=== PATIENT | male | born 1985 | race African-American/Black ===

== ENCOUNTER 2025-07-15 15:15 | Outpatient (AMB) | payer OTHER, SELFPAY ==
--- OUTSIDE RECORDS SUMMARY | 2024-03-28 06:45 | XMS_ITS ---
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 Name Role Phone BROOKE ESTEVEZ Unavailable [phone] DIAZ CONN Unavailable [phone] Encounters Encounter Location Date Provider Diagnosis [facility] [address] [place] [address] 03/28/2024 DIAZ CONN Plan Of Treatment Next Appt Details Provider Name:DIAZ CONN, 08/20/2025 01:00:00 PM, [address], [place], [address], Progress Notes * YOUSUF SIMPSONOB:[birth year] (40 yo M)Acc No.[id number]:03/28/2024 CPE Patient: STANLEY CARTER Provider: Nereida NUNN PA-C :1985 A ge:39 Y S ex:Male Date:03/28/2024 Address:[address] [place], [place] [id number] Subjective: * Chief Complaints: * * Medical History: Objective: * Vitals: Assessment: Plan: * Treatment: * Images: Billing Information: * Visit Code: * Procedure Codes: Care Plan Details* * Electronic signature of DANIEL CONN PA-C on 07/15/2025 at 06:44 PM EDT Sign off status: Pending * Provider: Nereida NUNN PA-C Date: 0 03/28/2024 Generated for Han stern/Jose/eTransmitting on: 0 07/15/2025 06:44 PM EDT
--- OUTSIDE RECORDS SUMMARY | 2024-05-29 06:30 | XMS_ITS ---
Author Organization [facility] [address] Address [address] [place] [address] Care Team Providers Care Highway Design Engineer Name Role Phone BROOKE ESTEVEZ Unavailable [phone] DIAZ CONN Unavailable [phone] Encounters Encounter Location Date Provider Diagnosis [facility] [place] [address] 05/29/2024 DIAZ CONN Plan Of Treatment Next Appt Details Provider Name:DIAZ CONN, 08/20/2025 01:00:00 PM, [address], [place], [address], Progress Notes * YOUSUF SIMPSONOB:[birth year] (40 yo M)Acc No.[id number]:05/29/2024 CPE Patient: STANLEY CARTER Provider: Nereida NUNN PA-C :1985 A ge:39 Y S ex:Male Date:05/29/2024 Address:[address] [place], [place] [phone] Subjective: * Chief Complaints: * * Medical History: Objective: * Vitals: Assessment: Plan: * Treatment: * Images: Billing Information: * Visit Code: * Procedure Codes: Care Plan Details* * Electronic signature of DANIEL CONN PA-C on 07/15/2025 at 06:44 PM EDT Sign off status: Pending * Provider: Nereida NUNN PA-C Date: 0 05/29/2024 Generated for Han stern/Jose/eTransmitting on: 0 07/15/2025 06:44 PM EDT
[2025-07-15 15:25] VITALS: BP 144/102; PULSE 71; O2SAT 98; BMI 33.5
--- NOTE | 2025-07-15 15:25 | A.OFFVIS_ITS ---
Vital Signs 07/15/25 15:25 Height 5 ft 9 in Weight 227 lb 2 oz BMI 33.5 BP 144/102 H Blood Pressure Location Rt brachial Position Sitting Pulse 71 Pulse Source Pulse Oximeter Pulse Oximetry (%) 98 Oxygen Delivery Method Room Air Intake Visit Reasons: Snoring Allergies No Known Allergies Allergy (Verified 07/15/25 15:29) HPI HPI Snoring: Details: Erick is a pleasant 40-year-old male, former minimal smoker, with underlying asthma. He was referred by PCP for suspected obstructive sleep apnea. He reports loud snoring, which has been a longstanding issue, and has been told by others that he stops breathing during sleep. He experiences poor sleep quality, often waking up and feeling unrested, and suffers from frequent morning headaches. The patient has a history of asthma, which was severe during childhood, requiring hospitalization and impacting his ability to play sports. He reports a resurgence of symptoms in recent years, including shortness of breath and a dry cough, but has not used an albuterol inhaler recently. The patient reports symptoms of allergic rhinitis, including nasal congestion, and has been using Claritin with limited relief. He has been advised to try a nasal spray such as Flonase for better symptom control. He denies any pertinent family history. 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 The patient has been noted to have elevated blood pressure readings, though he is not currently on any antihypertensive medications. He has a family history of kidney disease and has been advised to monitor his blood pressure at home, given his elevated BP today. [facility] Social History (Updated 07/15/25 @ 15:29 by Naheed Enriquez [facility]) Patient Tobacco Use Status: Former Tobacco user Tobacco use type: Cigar Substance Use Type: Marijuana Review of Systems Const Denies chills, Denies excessive sweating, Denies fever(s), Denies headache(s) and Denies night sweats Eyes Denies dry eyes, Denies irritation and Denies itchy eyes ENT Reports Normal hearing present, Denies headache(s), Denies nasal congestion, Denies nasal discharge, Denies post nasal drip and Denies sore throat Card Denies chest pain, Denies chest pain at rest, Denies chest pain with activity, Denies claudication, Denies leg edema, Denies orthopnea and Denies paroxysmal nocturnal dyspnea Resp Denies chest congestion, Denies excessive phlegm production, Denies pain on inspiration, Denies pain with cough, Denies stridor and Denies wheezing Musc Denies myalgias Neuro Reports Normal hearing present and Denies headache(s) Endo Denies excessive sweating Mitesh/Lymph Denies lymphadenopathy Aller/Immun Denies itchy eyes, Denies seasonal rhinorrhea and Denies wheezing Physical Exam Vital Signs: Last Vital Signs Pulse 71 07/15/25 15:25 BP 144/102 H 07/15/25 15:25 Pulse Ox 98 07/15/25 15:25 Oxygen Delivery Method Room Air 07/15/25 15:25 BMI result Body Mass Index 33.5 Const General: cooperative, healthy appearing, comfortable, no acute distress, well developed and alert Nutritional Appearance: obese Orientation/consciousness: patient oriented x3 Limitations: no limitations HEENT Head: Yes normal to inspection, Yes normocephalic and Yes atraumatic Ears: hearing grossly normal bilaterally and external ears normal Eyes General: appearance normal, both eyes and all related structures Eyelids: Yes eyelids normal Sclerae: sclerae normal EOM: EOMs intact bilaterally Neck Neck: Yes normal visual inspection and Yes no lymphadenopathy Lymphatic: no lymphadenopathy noted Chest Chest palpation & inspection: normal inspection of the chest Resp Effort & Inspection: normal respiratory effort, able to speak in complete sentences, no audible wheezes, no cough, no stridor, not tachypneic, no tripod positioning and no use of accessory muscles Auscultation: clear to auscultation bilaterally Cardio Jugular venous distension: no JVD Rate: regular rate Rhythm: regular rhythm Skin Other: warm, dry General skin exam: no rashes or lesions noted Neuro General: patient oriented x3 Cranial nerves: Yes Normal hearing present Cognition (Neuro): normal cognition Gait exam (Neuro): Normal gait present Extrem General: Yes normal to inspection, Yes capillary refill normal, Yes no clubbing, cyanosis or edema and Yes no pedal edema Psych Appearance: grossly normal and well kempt Speech and movement: Normal speech and movement present and Clear speech present Affect: normal affect Attitude: cooperative Thought process: Normal thought process present Thought content: Normal thought content present Insight: Good insight present (Psych) Judgement: Good judgement present (Psych) Assessment & Plan Assessment & Plan (1) Loud snoring: Code(s): R06.83 - Snoring Category: Medical (2) Witnessed episode of apnea: Code(s): R06.81 - Apnea, not elsewhere classified Category: Medical (3) Asthma: Code(s): J45.909 - Unspecified asthma, uncomplicated Category: Medical Plan Discussed the possibility of obstructive sleep apnea as patient quite symptomatic, will send for a home sleep study, followed by an in-lab study if necessary. We reviewed the management of asthma, including the use of albuterol and the potential need for a daily inhaler. Will send for PFT. Advised the patient on lifestyle modifications for hypertension, including home monitoring of blood pressure given elevated findings today. Encouraged patient to follow up with PCP to further discuss management. All questions were answered and patient is in agreement of plan. Will follow up to review results or sooner if needed. Orders: Orders PFT pulmonary function test Today J45.909 - Unspecified asthma, uncomplicated RT home sleep study Today R06.81 - Apnea, not elsewhere classified, R06.83 - Snoring Medications: New albuterol sulfate 90 mcg/actuation 2 puffs inhalation Q4-6H PRN 1 ea 3RF shortness of breath or wheezing Coding Level of Care Code New Pt Level 4 (17762) Diagnoses Loud snoring R06.83 Witnessed episode of apnea R06.81 Asthma J45.909
--- OUTSIDE RECORDS SUMMARY | 2025-07-15 18:45 | XMS_ITS | Patient Health Record ---
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 p) [phone] f) [phone], pt can make own appt Referral Priority Routine Reason please evaluate. [facility] office. Diagnosis 1 Snoring (R06.83) Referral Organization [facility] Referring Provider First Name DIAZ Referring Provider Last Name FABIEN Referring Provider Speciality Internal edicine Referred Provider Specialty Pulmonology Clinical Notes Jessica Alvarado 07/30 04:19:43 PM > faxed pt info to dr. aguirre. p) [phone] f) [phone], Logan Emery 04/06/2025 03:27:44 PM > I spoke to someone (I forgot to ask the name), on that phone number, they said they don't do sleep apnea testing.Christiano Danasia 04/07/2025 09:08:08 AM > refaxed pt info to [facility] office for evaluation p) [phone] f) [phone] (*the phone number is for neurology), Logan Emery 04/28/2025 01:07:48 PM > Cleo, they have rejected because order needs to be revised - they don't have a Dr. Hernandez in their office. She sent back fax 3 times., Logan Emery 04/29/2025 09:39:27 AM > Resent referral with no Dr. Hernandez's name., Logan Emery 06/01/2025 03:09:26 PM > [phone] spoke with Eli- Dana called the [facility] and they say that they don't have an office in [place] and that all referrals must go to [facility] in [place]. Their fax is [phone]. refaxed twice, Logan Emery 07/01/2025 03:46:30 PM > spoke with ambrosio Castro booked Jul 15 at 3:30 Referral Priority Routine Medications Medication SIG (Take, Route, Frequency, Duration) Notes Start Date End Date Status Albuterol Sulfate HFA 108 (90 Base) MCG/ACT 1 puff as needed Inhalation every 4 hrs; Duration: 30 days 08/19/2024 Active Social History Tobacco Use: Social History Observation Description Date Details (start date - stop date) Never Smoker NA - NA Tobacco Use/Smoking Question Answer Notes Are you a nonsmoker Alcohol Screen (Audit-C) Question Answer Notes Did you have a drink contain ing alcohol in the past year? Yes How often did you have a dri nk containing alcohol in the past year? 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 See HPI Problems Problem Type SNOMED Code ICD Code Onset Dates Problem Status W/U Status Risk Notes Problem Primary insomnia (9022825) Primary insomnia (F51.01) Active confirmed Problem Acne (91813009) Acne, unspecified (L70.9) Active confirmed Problem Snoring (54818230) Snoring (R06.83) Active confirmed Problem Anxiety (18229214) Anxiety (F41.9) Active confirmed Problem Venereal disease screening (517954266) Screen for STD (sexually transmitted disease) (Z11.3) Active confirmed Problem Seasonal allergy (678856404) Seasonal allergies (J30.2) Active confirmed Problem Sleep apnea (78228688) Sleep apnea in adult (G47.30) Active confirmed Problem Constipation by delayed colonic transit (33618421) Constipation by delayed colonic transit (K59.01) Active confirmed Problem Asthma (721580783) Asthma (J45.909) Active confirmed Problem Elevated fasting lipid profile (916687738633) Elevated lipids (E78.5) Active confirmed Problem Acne scarring (L73.0) Active confirmed Vital Signs Heart Rate 87 /min 08/19/2024 Oximetry 97 % 08/19/2024 Blood pressure diastolic 88 mm Hg 08/19/2024 Height 70 in 08/19/2024 Blood pressure systolic 130 mm Hg 08/19/2024 Weight 223.4 lbs 08/19/2024 BMI 32.05 kg/m2 08/19/2024 Encounters Encounter Location Date Provider Diagnosis [facility] [address] [place] [address] 08/19/2024 DIAZ CONN Wellness examination Z00.00 ; Anxiety F41.9 ; Seasonal allergies J30.2 ; Primary insomnia F51.01 ; Elevated lipids E78.5 and Screen for STD (sexually transmitted disease) Z11.[address] [facility] [address] [place] [address] 08/19/2024 DIAZ CONN [facility] [address] [place] [address] 04/06/2025 DIAZ CONN [facility] [address] [place] [address] 04/28/2025 DIAZ CONN Assessments Encounter Date Diagnosis (ICD Code) Assessment Notes Treatment Notes Treatment Clinical Notes Section Notes 08/19/2024 Anxiety (ICD-10 - F41.9) Patient is a 39-year-old male who presented today for annual physical exam. His medications, medical history, social history, allergies, family history, vaccination history, and screening tests were all reviewed. Patient's safety and wellness were also reviewed. # History of elevated triglycerides, very mild in the 160s, will repeat lipid panel # Family history of chronic kidney disease, monitor CMP # Patient declines all vaccines, up-to-date on tetanus in 2020. PHQ-9 with a total score of 4, no concern regarding mental health at this time. Healthcare proxy was declined today.Up-to-date on routine screenings. #seasonal allergies Stop taking Claritin, but did discuss Flonase/nondrowsy allergy medication. #Insomnia: patient states that he gets around 3 to 4 hours of sleep at night. Educated on cortisol manager inspection, as well as ways to improve circadian rhythm.Patient does snore, sending for pulmonology for sleep study. # Refer to dermatology for routine skin checks/back acne treatment. # Looking for STD testing. Not currently sexually active but was sexually active with multiple female partners about 3 months ago. Declines symptoms. # Asthma: Lungs clear on auscultation today. Will treat with albuterol, and discussed antihistamine/Flonase . If no improvement consider chest x-ray/Singulair. Follow-up in 1 year for complete physical, follow with dermatology and pulmonology in the meantime. Fasting labs prior. Patient seen and examined. Comprehensive discussion was done on the following. 1. Nutrition: It is important to follow a healthy diet based on lots of vegetables and legumes and good fat. Avoid processed food and processed carbohydrates. Prepare your own meals. Read labels and avoid high fructose corn syrup, processed chemicals added to increase shelf life and preprepared meals. Avoid fast foods. Eat slowly and plan meals for a week. Try to count calories and be mindful of daily calorie intake. Get into the habit of keeping an eye on your weight by using an appropriate scale. Learn to log exercise and discussed fitness Apps like OpenDoorpal/Studio Systemsit which can help keep log off calories taken versus calories burned. Local food should be preferred. Discussed Dirty Dozen Versus Clean Fifteen. Discussed healthy supplements like fish oil, Tumeric, Curcumin, Melatonin, Resveratrol, Probiotics, Vitamin-D, Alpha-Lipoic acid, Vitamin-D and coconut oil. 2. It is important to exercise regularly. Is a good habit to walk at least 30 minutes a day. Gentle weightlifting with standard precautions to protect the back. Finding activity like cycling or hiking and get into the habit of engaging in it. Stretching before and after the exercises important. It is also important to contact me if there are any problems like shortness of breath, chest pain, back pain and joint or muscle pain associated with the exercise. 3. Discussed age appropriate screening guidelines. Colonoscopy needs to start at age 50 with stool for occult blood as appropriate. There is a new test that can test for genetic abnormalities in the stool sample, Cologuard. This would not replace a colonoscopy but could be used as a screening tool for patients who do not want a colonoscopy. We discussed the importance of early detection of colon cancer. 4. Discussed current PSA screening. PSA screening can be done in most patients between age 50 and 65. However early detection of prostate cancer needs to carefully be balanced with complications with treatment. These include incontinence, impotence etc. Each patient should decide if they would like to have this test. 5. Discussed safe driving and no use of smart phone while driving 6. Age-appropriate immunizations were discussed. A tetanus booster is needed every 10 years. Flu vaccine is recommended every year just before the start of the flu season. Shingles vaccine is recommended after age 50 but not all insurances cover it. Pneumonia vaccine is given after age 65 unless there are certain comorbidities for which it is started earlier. 7. Diagnostic labs were discussed. These could include/not limited to CBC CMP and lipids with fasting blood glucose and insulin levels. Vitamin D and hemoglobin A1c testing might be appropriate. All quetsions answered to patients satisfaction. Patient verbalized understanding of diagnosis and treatments explained. To call sooner prior to next visit it any questions/concerns arise. Case discussed with collaborating physician Chiquis Michaels who reviewed the assessment and plan. Chart, medications, labs, vital signs reviewed. Dictation was accomplished with the use of [employer] voice recognition software, prone to medical misidentifications and grammatical errors. This is unintentional and the practitioner does try to identify and correct these, but some could still be present. Please do not hesitate to contact practitioner for clarification. 08/19/2024 Wellness examination (ICD-10 - Z00.00) Patient is a 39-year-old male who presented today for annual physical exam. His medications, medical history, social history, allergies, family history, vaccination history, and screening tests were all reviewed. Patient's safety and wellness were also reviewed. # History of elevated triglycerides, very mild in the 160s, will repeat lipid panel # Family history of chronic kidney disease, monitor CMP # Patient declines all vaccines, up-to-date on tetanus in 2020. PHQ-9 with a total score of 4, no concern regarding mental health at this time. Healthcare proxy was declined today.Up-to-date on routine screenings. #seasonal allergies Stop taking Claritin, but did discuss Flonase/nondrowsy allergy medication. #Insomnia: patient states that he gets around 3 to 4 hours of sleep at night. Educated on cortisol manager inspection, as well as ways to improve circadian rhythm.Patient does snore, sending for pulmonology for sleep study. # Refer to dermatology for routine skin checks/back acne treatment. # Looking for STD testing. Not currently sexually active but was sexually active with multiple female partners about 3 months ago. Declines symptoms. # Asthma: Lungs clear on auscultation today. Will treat with albuterol, and discussed antihistamine/Flonase . If no improvement consider chest x-ray/Singulair. Follow-up in 1 year for complete physical, follow with dermatology and pulmonology in the meantime. Fasting labs prior. Patient seen and examined. Comprehensive discussion was done on the following. 1. Nutrition: It is important to follow a healthy diet based on lots of vegetables and legumes and good fat. Avoid processed food and processed carbohydrates. Prepare your own meals. Read labels and avoid high fructose corn syrup, processed chemicals added to increase shelf life and preprepared meals. Avoid fast foods. Eat slowly and plan meals for a week. Try to count calories and be mindful of daily calorie intake. Get into the habit of keeping an eye on your weight by using an appropriate scale. Learn to log exercise and discussed fitness Apps like OpenDoorpal/[employer] which can help keep log off calories taken versus calories burned. Local food should be preferred. Discussed Dirty Dozen Versus Clean Fifteen. Discussed healthy supplements like fish oil, Tumeric, Curcumin, Melatonin, Resveratrol, Probiotics, Vitamin-D, Alpha-Lipoic acid, Vitamin-D and coconut oil. 2. It is important to exercise regularly. Is a good habit to walk at least 30 minutes a day. Gentle weightlifting with standard precautions to protect the back. Finding activity like cycling or hiking and get into the habit of engaging in it. Stretching before and after the exercises important. It is also important to contact me if there are any problems like shortness of breath, chest pain, back pain and joint or muscle pain associated with the exercise. 3. Discussed age appropriate screening guidelines. Colonoscopy needs to start at age 50 with stool for occult blood as appropriate. There is a new test that can test for genetic abnormalities in the stool sample, Cologuard. This would not replace a colonoscopy but could be used as a screening tool for patients who do not want a colonoscopy. We discussed the importance of early detection of colon cancer. 4. Discussed current PSA screening. PSA screening can be done in most patients between age 50 and 65. However early detection of prostate cancer needs to carefully be balanced with complications with treatment. These include incontinence, impotence etc. Each patient should decide if they would like to have this test. 5. Discussed safe driving and no use of smart phone while driving 6. Age-appropriate immunizations were discussed. A tetanus booster is needed every 10 years. Flu vaccine is recommended every year just before the start of the flu season. Shingles vaccine is recommended after age 50 but not all insurances cover it. Pneumonia vaccine is given after age 65 unless there are certain comorbidities for which it is started earlier. 7. Diagnostic labs were discussed. These could include/not limited to CBC CMP and lipids with fasting blood glucose and insulin levels. Vitamin D and hemoglobin A1c testing might be appropriate. All quetsions answered to patients satisfaction. Patient verbalized understanding of diagnosis and treatments explained. To call sooner prior to next visit it any questions/concerns arise. Case discussed with collaborating physician Chiquis Michaels who reviewed the assessment and plan. Chart, medications, labs, vital signs reviewed. Dictation was accomplished with the use of [employer] voice recognition software, prone to medical misidentifications and grammatical errors. This is unintentional and the practitioner does try to identify and correct these, but some could still be present. Please do not hesitate to contact practitioner for clarification. 08/19/2024 Seasonal allergies (ICD-10 - J30.2) Patient is a 39-year-old male who presented today for annual physical exam. His medications, medical history, social history, allergies, family history, vaccination history, and screening tests were all reviewed. Patient's safety and wellness were also reviewed. # History of elevated triglycerides, very mild in the 160s, will repeat lipid panel # Family history of chronic kidney disease, monitor CMP # Patient declines all vaccines, up-to-date on tetanus in 2020. PHQ-9 with a total score of 4, no concern regarding mental health at this time. Healthcare proxy was declined today.Up-to-date on routine screenings. #seasonal allergies Stop taking Claritin, but did discuss Flonase/nondrowsy allergy medication. #Insomnia: patient states that he gets around 3 to 4 hours of sleep at night. Educated on cortisol manager inspection, as well as ways to improve circadian rhythm.Patient does snore, sending for pulmonology for sleep study. # Refer to dermatology for routine skin checks/back acne treatment. # Looking for STD testing. Not currently sexually active but was sexually active with multiple female partners about 3 months ago. Declines symptoms. # Asthma: Lungs clear on auscultation today. Will treat with albuterol, and discussed antihistamine/Flonase . If no improvement consider chest x-ray/Singulair. Follow-up in 1 year for complete physical, follow with dermatology and pulmonology in the meantime. Fasting labs prior. Patient seen and examined. Comprehensive discussion was done on the following. 1. Nutrition: It is important to follow a healthy diet based on lots of vegetables and legumes and good fat. Avoid processed food and processed carbohydrates. Prepare your own meals. Read labels and avoid high fructose corn syrup, processed chemicals added to increase shelf life and preprepared meals. Avoid fast foods. Eat slowly and plan meals for a week. Try to count calories and be mindful of daily calorie intake. Get into the habit of keeping an eye on your weight by using an appropriate scale. Learn to log exercise and discussed fitness Apps like Open[employer]oorpal/[employer] which can help keep log off calories taken versus calories burned. Local food should be preferred. Discussed Dirty Dozen Versus Clean Fifteen. Discussed healthy supplements like fish oil, Tumeric, Curcumin, Melatonin, Resveratrol, Probiotics, Vitamin-D, Alpha-Lipoic acid, Vitamin-D and coconut oil. 2. It is important to exercise regularly. Is a good habit to walk at least 30 minutes a day. Gentle weightlifting with standard precautions to protect the back. Finding activity like cycling or hiking and get into the habit of engaging in it. Stretching before and after the exercises important. It is also important to contact me if there are any problems like shortness of breath, chest pain, back pain and joint or muscle pain associated with the exercise. 3. Discussed age appropriate screening guidelines. Colonoscopy needs to start at age 50 with stool for occult blood as appropriate. There is a new test that can test for genetic abnormalities in the stool sample, Cologuard. This would not replace a colonoscopy but could be used as a screening tool for patients who do not want a colonoscopy. We discussed the importance of early detection of colon cancer. 4. Discussed current PSA screening. PSA screening can be done in most patients between age 50 and 65. However early detection of prostate cancer needs to carefully be balanced with complications with treatment. These include incontinence, impotence etc. Each patient should decide if they would like to have this test. 5. Discussed safe driving and no use of smart phone while driving 6. Age-appropriate immunizations were discussed. A tetanus booster is needed every 10 years. Flu vaccine is recommended every year just before the start of the flu season. Shingles vaccine is recommended after age 50 but not all insurances cover it. Pneumonia vaccine is given after age 65 unless there are certain comorbidities for which it is started earlier. 7. Diagnostic labs were discussed. These could include/not limited to CBC CMP and lipids with fasting blood glucose and insulin levels. Vitamin D and hemoglobin A1c testing might be appropriate. All quetsions answered to patients satisfaction. Patient verbalized understanding of diagnosis and treatments explained. To call sooner prior to next visit it any questions/concerns arise. Case discussed with collaborating physician Chiquis Michaels who reviewed the assessment and plan. Chart, medications, labs, vital signs reviewed. Dictation was accomplished with the use of [employer] voice recognition software, prone to medical misidentifications and grammatical errors. This is unintentional and the practitioner does try to identify and correct these, but some could still be present. Please do not hesitate to contact practitioner for clarification. 08/19/2024 Primary insomnia (ICD-10 - F51.01) Patient is a 39-year-old male who presented today for annual physical exam. His medications, medical history, social history, allergies, family history, vaccination history, and screening tests were all reviewed. Patient's safety and wellness were also reviewed. # History of elevated triglycerides, very mild in the 160s, will repeat lipid panel # Family history of chronic kidney disease, monitor CMP # Patient declines all vaccines, up-to-date on tetanus in 2020. PHQ-9 with a total score of 4, no concern regarding mental health at this time. Healthcare proxy was declined today.Up-to-date on routine screenings. #seasonal allergies Stop taking Claritin, but did discuss Flonase/nondrowsy allergy medication. #Insomnia: patient states that he gets around 3 to 4 hours of sleep at night. Educated on cortisol manager inspection, as well as ways to improve circadian rhythm.Patient does snore, sending for pulmonology for sleep study. # Refer to dermatology for routine skin checks/back acne treatment. # Looking for STD testing. Not currently sexually active but was sexually active with multiple female partners about 3 months ago. Declines symptoms. # Asthma: Lungs clear on auscultation today. Will treat with albuterol, and discussed antihistamine/Flonase . If no improvement consider chest x-ray/Singulair. Follow-up in 1 year for complete physical, follow with dermatology and pulmonology in the meantime. Fasting labs prior. Patient seen and examined. Comprehensive discussion was done on the following. 1. Nutrition: It is important to follow a healthy diet based on lots of vegetables and legumes and good fat. Avoid processed food and processed carbohydrates. Prepare your own meals. Read labels and avoid high fructose corn syrup, processed chemicals added to increase shelf life and preprepared meals. Avoid fast foods. Eat slowly and plan meals for a week. Try to count calories and be mindful of daily calorie intake. Get into the habit of keeping an eye on your weight by using an appropriate scale. Learn to log exercise and discussed fitness Apps like OpenDoorpal/Studio Systemsit which can help keep log off calories taken versus calories burned. Local food should be preferred. Discussed Dirty Dozen Versus Clean Fifteen. Discussed healthy supplements like fish oil, Tumeric, Curcumin, Melatonin, Resveratrol, Probiotics, Vitamin-D, Alpha-Lipoic acid, Vitamin-D and coconut oil. 2. It is important to exercise regularly. Is a good habit to walk at least 30 minutes a day. Gentle weightlifting with standard precautions to protect the back. Finding activity like cycling or hiking and get into the habit of engaging in it. Stretching before and after the exercises important. It is also important to contact me if there are any problems like shortness of breath, chest pain, back pain and joint or muscle pain associated with the exercise. 3. Discussed age appropriate screening guidelines. Colonoscopy needs to start at age 50 with stool for occult blood as appropriate. There is a new test that can test for genetic abnormalities in the stool sample, Cologuard. This would not replace a colonoscopy but could be used as a screening tool for patients who do not want a colonoscopy. We discussed the importance of early detection of colon cancer. 4. Discussed current PSA screening. PSA screening can be done in most patients between age 50 and 65. However early detection of prostate cancer needs to carefully be balanced with complications with treatment. These include incontinence, impotence etc. Each patient should decide if they would like to have this test. 5. Discussed safe driving and no use of smart phone while driving 6. Age-appropriate immunizations were discussed. A tetanus booster is needed every 10 years. Flu vaccine is recommended every year just before the start of the flu season. Shingles vaccine is recommended after age 50 but not all insurances cover it. Pneumonia vaccine is given after age 65 unless there are certain comorbidities for which it is started earlier. 7. Diagnostic labs were discussed. These could include/not limited to CBC CMP and lipids with fasting blood glucose and insulin levels. Vitamin D and hemoglobin A1c testing might be appropriate. All quetsions answered to patients satisfaction. Patient verbalized understanding of diagnosis and treatments explained. To call sooner prior to next visit it any questions/concerns arise. Case discussed with collaborating physician Chiquis Michaels who reviewed the assessment and plan. Chart, medications, labs, vital signs reviewed. Dictation was accomplished with the use of [employer] voice recognition software, prone to medical misidentifications and grammatical errors. This is unintentional and the practitioner does try to identify and correct these, but some could still be present. Please do not hesitate to contact practitioner for clarification. 08/19/2024 Elevated lipids (ICD-10 - E78.5) Patient is a 39-year-old male who presented today for annual physical exam. His medications, medical history, social history, allergies, family history, vaccination history, and screening tests were all reviewed. Patient's safety and wellness were also reviewed. # History of elevated triglycerides, very mild in the 160s, will repeat lipid panel # Family history of chronic kidney disease, monitor CMP # Patient declines all vaccines, up-to-date on tetanus in 2020. PHQ-9 with a total score of 4, no concern regarding mental health at this time. Healthcare proxy was declined today.Up-to-date on routine screenings. #seasonal allergies Stop taking Claritin, but did discuss Flonase/nondrowsy allergy medication. #Insomnia: patient states that he gets around 3 to 4 hours of sleep at night. Educated on cortisol manager inspection, as well as ways to improve circadian rhythm.Patient does snore, sending for pulmonology for sleep study. # Refer to dermatology for routine skin checks/back acne treatment. # Looking for STD testing. Not currently sexually active but was sexually active with multiple female partners about 3 months ago. Declines symptoms. # Asthma: Lungs clear on auscultation today. Will treat with albuterol, and discussed antihistamine/Flonase . If no improvement consider chest x-ray/Singulair. Follow-up in 1 year for complete physical, follow with dermatology and pulmonology in the meantime. Fasting labs prior. Patient seen and examined. Comprehensive discussion was done on the following. 1. Nutrition: It is important to follow a healthy diet based on lots of vegetables and legumes and good fat. Avoid processed food and processed carbohydrates. Prepare your own meals. Read labels and avoid high fructose corn syrup, processed chemicals added to increase shelf life and preprepared meals. Avoid fast foods. Eat slowly and plan meals for a week. Try to count calories and be mindful of daily calorie intake. Get into the habit of keeping an eye on your weight by using an appropriate scale. Learn to log exercise and discussed fitness Apps like [employer]ob/[employer] which can help keep log off calories taken versus calories burned. Local food should be preferred. Discussed Dirty Dozen Versus Clean Fifteen. Discussed healthy supplements like fish oil, Tumeric, Curcumin, Melatonin, Resveratrol, Probiotics, Vitamin-D, Alpha-Lipoic acid, Vitamin-D and coconut oil. 2. It is important to exercise regularly. Is a good habit to walk at least 30 minutes a day. Gentle weightlifting with standard precautions to protect the back. Finding activity like cycling or hiking and get into the habit of engaging in it. Stretching before and after the exercises important. It is also important to contact me if there are any problems like shortness of breath, chest pain, back pain and joint or muscle pain associated with the exercise. 3. Discussed age appropriate screening guidelines. Colonoscopy needs to start at age 50 with stool for occult blood as appropriate. There is a new test that can test for genetic abnormalities in the stool sample, Cologuard. This would not replace a colonoscopy but could be used as a screening tool for patients who do not want a colonoscopy. We discussed the importance of early detection of colon cancer. 4. Discussed current PSA screening. PSA screening can be done in most patients between age 50 and 65. However early detection of prostate cancer needs to carefully be balanced with complications with treatment. These include incontinence, impotence etc. Each patient should decide if they would like to have this test. 5. Discussed safe driving and no use of smart phone while driving 6. Age-appropriate immunizations were discussed. A tetanus booster is needed every 10 years. Flu vaccine is recommended every year just before the start of the flu season. Shingles vaccine is recommended after age 50 but not all insurances cover it. Pneumonia vaccine is given after age 65 unless there are certain comorbidities for which it is started earlier. 7. Diagnostic labs were discussed. These could include/not limited to CBC CMP and lipids with fasting blood glucose and insulin levels. Vitamin D and hemoglobin A1c testing might be appropriate. All quetsions answered to patients satisfaction. Patient verbalized understanding of diagnosis and treatments explained. To call sooner prior to next visit it any questions/concerns arise. Case discussed with collaborating physician Chiquis Michaels who reviewed the assessment and plan. Chart, medications, labs, vital signs reviewed. Dictation was accomplished with the use of [employer] voice recognition software, prone to medical misidentifications and grammatical errors. This is unintentional and the practitioner does try to identify and correct these, but some could still be present. Please do not hesitate to contact practitioner for clarification. 08/19/2024 Screen for STD (sexually transmitted disease) (ICD-10 - Z11.3) Patient is a 39-year-old male who presented today for annual physical exam. His medications, medical history, social history, allergies, family history, vaccination history, and screening tests were all reviewed. Patient's safety and wellness were also reviewed. # History of elevated triglycerides, very mild in the 160s, will repeat lipid panel # Family history of chronic kidney disease, monitor CMP # Patient declines all vaccines, up-to-date on tetanus in 2020. PHQ-9 with a total score of 4, no concern regarding mental health at this time. Healthcare proxy was declined today.Up-to-date on routine screenings. #seasonal allergies Stop taking Claritin, but did discuss Flonase/nondrowsy allergy medication. #Insomnia: patient states that he gets around 3 to 4 hours of sleep at night. Educated on cortisol manager inspection, as well as ways to improve circadian rhythm.Patient does snore, sending for pulmonology for sleep study. # Refer to dermatology for routine skin checks/back acne treatment. # Looking for STD testing. Not currently sexually active but was sexually active with multiple female partners about 3 months ago. Declines symptoms. # Asthma: Lungs clear on auscultation today. Will treat with albuterol, and discussed antihistamine/Flonase . If no improvement consider chest x-ray/Singulair. Follow-up in 1 year for complete physical, follow with dermatology and pulmonology in the meantime. Fasting labs prior. Patient seen and examined. Comprehensive discussion was done on the following. 1. Nutrition: It is important to follow a healthy diet based on lots of vegetables and legumes and good fat. Avoid processed food and processed carbohydrates. Prepare your own meals. Read labels and avoid high fructose corn syrup, processed chemicals added to increase shelf life and preprepared meals. Avoid fast foods. Eat slowly and plan meals for a week. Try to count calories and be mindful of daily calorie intake. Get into the habit of keeping an eye on your weight by using an appropriate scale. Learn to log exercise and discussed fitness Apps like [employer]ob/[employer] which can help keep log off calories taken versus calories burned. Local food should be preferred. Discussed Dirty Dozen Versus Clean Fifteen. Discussed healthy supplements like fish oil, Tumeric, Curcumin, Melatonin, Resveratrol, Probiotics, Vitamin-D, Alpha-Lipoic acid, Vitamin-D and coconut oil. 2. It is important to exercise regularly. Is a good habit to walk at least 30 minutes a day. Gentle weightlifting with standard precautions to protect the back. Finding activity like cycling or hiking and get into the habit of engaging in it. Stretching before and after the exercises important. It is also important to contact me if there are any problems like shortness of breath, chest pain, back pain and joint or muscle pain associated with the exercise. 3. Discussed age appropriate screening guidelines. Colonoscopy needs to start at age 50 with stool for occult blood as appropriate. There is a new test that can test for genetic abnormalities in the stool sample, Cologuard. This would not replace a colonoscopy but could be used as a screening tool for patients who do not want a colonoscopy. We discussed the importance of early detection of colon cancer. 4. Discussed current PSA screening. PSA screening can be done in most patients between age 50 and 65. However early detection of prostate cancer needs to carefully be balanced with complications with treatment. These include incontinence, impotence etc. Each patient should decide if they would like to have this test. 5. Discussed safe driving and no use of smart phone while driving 6. Age-appropriate immunizations were discussed. A tetanus booster is needed every 10 years. Flu vaccine is recommended every year just before the start of the flu season. Shingles vaccine is recommended after age 50 but not all insurances cover it. Pneumonia vaccine is given after age 65 unless there are certain comorbidities for which it is started earlier. 7. Diagnostic labs were discussed. These could include/not limited to CBC CMP and lipids with fasting blood glucose and insulin levels. Vitamin D and hemoglobin A1c testing might be appropriate. All quetsions answered to patients satisfaction. Patient verbalized understanding of diagnosis and treatments explained. To call sooner prior to next visit it any questions/concerns arise. Case discussed with collaborating physician Chiquis Michaels who reviewed the assessment and plan. Chart, medications, labs, vital signs reviewed. Dictation was accomplished with the use of [employer] voice recognition software, prone to medical misidentifications and grammatical errors. This is unintentional and the practitioner does try to identify and correct these, but some could still be present. Please do not hesitate to contact practitioner for clarification. Plan Of Treatment Pending Test Test Name Order Date X ray : Spines, lumbosacral 12/12/2021 HIV 01/29/2024 Ultrasound : Kidneys and Bladder 022 CBC (COMPLETE BLOOD COUNT) 03/03/2021 COMPREHENSIVE METABOLIC PANEL 03/03/2021 GC (N. GONORRHOEAE) AMP PROBE, URINE 11/2023 HEMOGLOBIN A1C 03/03/2021 LIPID PANEL 03/03/2021 URINALYSIS, COMPLETE 03/03/2021 Hepatitis C Antibody 01/29/2024 Hepatitis Acute Panel 08/19/2024 HIV 1 HIV 2 Antibody Screen 08/19/2024 CHLAMYDIA DNA URINE 01/29/2024 LIPID PANEL, STANDARD 08/19/2024 HIV 1/2 ANTIGEN/ANTIBODY,FOURTH GENERATI ON W/RFL 02/01/2024 COMPREHENSIVE METABOLIC PANEL 08/19/2024 CBC (INCLUDES DIFF/PLT) 08/19/2024 HSV 1/2 IGG,TYPE SPECIFIC AB 08/19/2024 HSV 1/2 IGG,TYPE SPECIFIC AB 02/01/2024 CHLAMYDIA/N. GONORRHOEAE RNA, TMA, UROGE NITAL 02/01/2024 CHLAMYDIA/N. GONORRHOEAE RNA, TMA, UROGE NITAL 08/19/2024 HERPES 1 AND 2 ANTIBODIES, IGM Next Appt Details Provider Name:DIAZ CONN, 08/20/2025 01:00:00 PM, [address], [place], [address], Insurance Providers Payer Name Payer Address Payer Phone Subscriber Number Group Number Insured Name Patient Relationship to Insured Coverage Start Date Coverage End Date [employer] [address] [id number] [phone] [id number] STANLEY SIMPSON Self - patient is the insured Medical (General) History Medical History History ICD Code Asthma J45.909 Seasonal allergies J30.2 Snoring R06.83 Acne scarring L73.0 Surgical History Surgery Date(Month/Year) Appendectomy (2020) 2020 Right achilles tear 2021
--- OUTSIDE RECORDS SUMMARY | 2025-07-15 18:45 | XMS_ITS ---
Author Name [facility] Organization Unknown Care Team Organization Name Specialty Phone Email Start Date End Da te [employer] 04/02/2024 0 04/03/2024 [facility] 09/05/2022
== END 2025-07-15 15:54 | disposition home or self-care (01) ==
LOC: HO.HPSW 15:15
PROVIDERS: PCP Physician Assistant; Referring Provider Physician Assistant; Visit Provider Nurse Practitioner Family
DX: R06.83 Snoring (principal); R06.81 Apnea, not elsewhere classified; J45.909 Unspecified asthma, uncomplicated
CPT/HCPCS: 99204

== ENCOUNTER 2025-10-06 15:46 | Outpatient (REF) | payer OTHER, SELFPAY ==
--- OUTSIDE RECORDS SUMMARY | 2024-05-29 05:30 | XMS_ITS ---
Author Organization [facility] [address] Address [address] [place] [address] Care Team Providers Care Plant Protection Officer Name Role Phone BROOKE ESTEVEZ Unavailable [phone] DIAZ CONN Unavailable [phone] Encounters Encounter Location Date Provider Diagnosis [facility] [place] [address] 05/29/2024 DIAZ CONN Plan Of Treatment Next Appt Details Provider Name:DIAZ CONN, 11/02/2025 01:00:00 PM, [address], [place], [address], Progress Notes * YOUSUF SIMPSONOB:[birth year] (40 yo M)Acc No.[id number]:05/29/2024 CPE Patient: JARON CARTERCaitlin Provider: Nereida CONN PA-C :1985 A ge:39 Y S ex:Male Date:05/29/2024 Address:[address] [place], [place] [phone] Care Plan Details* * Electronic signature of DANIEL CONN PA-C on 10/06/2025 at 10:27 PM EST Sign off status: Pending * Provider: Nereida CONN PA-C Date: 0 05/29/2024 Generated for Han stern/Faallang/eTransmitting on: 1 12/07/2024 10:27 PM EST
--- OUTSIDE RECORDS SUMMARY | 2025-08-20 08:00 | XMS_ITS ---
Author Organization [facility] [address] Address [address] [place] [address] Care Team Providers Care Rn Hospice Name Role Phone BROOKE ESTEVEZ Unavailable [phone] DIAZ CONN Unavailable [phone] REASON FOR VISIT annual Encounters Encounter Location Date Provider Diagnosis [facility] [address] [place] [address] 08/20/2025 DIAZ CONN Plan Of Treatment Next Appt Details Provider Name:DIAZ CONN, 11/02/2025 01:00:00 PM, [address], [place], [address], Progress Notes * YOUSUF SIMPSONOB:[birth year] (40 yo M)Acc No.[id number]:08/20/2025 CPE Patient: Imani CARROLL STANLEY Provider: Nereida CONN PA-C :1985 A ge:40 Y S ex:Male Date:08/20/2025 Address:[address] [place], [place] [id number] Subjective: * Chief Complaints: * A nnual Care Plan Details* * Electronic signature of DANIEL CONN PA-C on 10/06/2025 at 10:27 PM EST Sign off status: Pending * Provider: Nereida CONN PA-C Date: Generated for Printi ng/Faxing/eTransmitting on: 1 12/07/2024 10:27 PM EST
--- NOTE | 2025-10-06 15:52 | PFT_ITS ---
Spirometry [] Lung Volumes [] Diffusion Capacity [] Methacholine Challenge [] Flow Volume Loops [] MVV [] MIP/MEP(Max inspiratory pressure/Max expiratory pressure) [] 6 Minute Walk Test [] ABG [] Interpretation [] MTDD
[2025-10-06 16:36] VITALS: PULSE 74
--- OUTSIDE RECORDS SUMMARY | 2025-10-06 22:28 | XMS_ITS | Patient Health Record ---
Author Organization [facility] Address [address] [place] [address] Care Team Providers Care Cfd Engineer Name Role Phone BROOKE MICHAELS Unavailable [phone] DANIEL CONNY Unavailable [phone] Allergies No Known Allergies Reason For Referral No Information Medications Medication SIG (Take, Route, Frequency, Duration) Notes Start Date End Date Status amLODIPine Besylate 5 MG Tablet 1 tablet Orally Once a day; Duration: 30 days 07/20/2025 Active Albuterol Sulfate HFA 108 (90 Base) MCG/ACT Aerosol Solution 1 puff as needed Inhalation every 4 hrs; Duration: 30 days 08/19/2024 Active Social History Tobacco Use: Social History Observation Description Date Details (start date - stop date) Never Smoker NA - NA Social History Drugs/Alcohol: Social Info Question Answer Notes Alcohol Screen (Audit-C) Did you have a drink containing alcohol in the past year? Yes How often did you have a drink containing alcohol in the past year? 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 See HPI Problems Problem Type SNOMED Code ICD Code Onset Dates Problem Status W/U Status Risk Notes Problem Primary insomnia (1233592) Primary insomnia (F51.01) Active confirmed Problem Acne (23299017) Acne, unspecified (L70.9) Active confirmed Problem Snoring (88949880) Snoring (R06.83) Active confirmed Problem Abnormal blood pressure (43178759) Encounter for examination of blood pressure with abnormal findings (Z01.31) Active confirmed Problem Essential hypertension (28932646) Essential hypertension (I10) Active confirmed Problem Anxiety (50282107) Anxiety (F41.9) Active confirmed Problem Venereal disease screening (239262896) Screen for STD (sexually transmitted disease) (Z11.3) Active confirmed Problem Seasonal allergy (304820662) Seasonal allergies (J30.2) Active confirmed Problem Sleep apnea (22375880) Sleep apnea in adult (G47.30) Active confirmed Problem Constipation by delayed colonic transit (36913218) Constipation by delayed colonic transit (K59.01) Active confirmed Problem Asthma (159421986) Asthma (J45.909) Active confirmed Problem Elevated fasting lipid profile (928527549827) Elevated lipids (E78.5) Active confirmed Problem Acne scarring (L73.0) Active confirmed Vital Signs Heart Rate 93 /min 07/20/2025 Oximetry 99 % 07/20/2025 Blood pressure diastolic 98 mm Hg 07/20/2025 Height 70 in 07/20/2025 Blood pressure systolic 142 mm Hg 07/20/2025 Weight 227.2 lbs 07/20/2025 BMI 32.6 kg/m2 07/20/2025 Encounters Encounter Location Date Provider Diagnosis [facility] [address] [place], [place] 07/20/2025 DIAZ CONN Anxiety F41.9 ; Essential hypertension I10 ; Seasonal allergies J30.2 ; Primary insomnia F51.01 ; Elevated lipids E78.5 ; Screen for STD (sexually transmitted disease) Z11.3 and Encounter for examination of blood pressure with abnormal findings Z01.[address] [facility] [address] [place], [place] 04/06/[address] CONN [facility] [address] [place], [place] 04/28/2025 DIAZ CONN [facility] [address] [place] [phone] 07/17/[address] [facility] [address] [place] [address] 07/17/2025 DIAZ CONN Assessments Encounter Date Diagnosis (ICD Code) Assessment Notes Treatment Notes Treatment Clinical Notes Section Notes 07/20/2025 Essential hypertension (ICD-10 - I10) Pleasant 40-year-old male who presents the office for a follow-up visit. # Scheduled with pulmonology, noted to have hypertension, scheduled for sleep apnea test in the next 10 weeks, but they are concerned in regards to his blood pressure that is been high at home. # Hypertension: Blood pressure 142/98. Patient is -[place]. Will start amlodipine 5 mg and follow-up in 4 weeks. Obtaining labs. Patient states that he occasionally does get headaches, declines dizziness. If symptoms persist post blood pressure management, could consider further imaging. Discussed EKG in office today July 20, 2025 but patient declines. He states he has no concern while driving # Asthma: Treated with albuterol by pulmonology as needed # BMI 32: Discussed lifestyle # Obtain labs from July 20, 2025, call with result # History of elevated triglycerides, very mild in the 160s, will repeat lipid panel # Family history of chronic kidney disease, monitor CMP #seasonal allergies Stop taking Claritin, but did discuss Flonase/nondrowsy allergy medication. # Refer to dermatology for routine skin checks/back acne treatment. Follow-up for complete physical in 4 weeks, will assess blood pressure at that time All quetsions answered to patients satisfaction. Patient verbalized understanding of diagnosis and treatments explained. To call sooner prior to next visit it any questions/concerns arise. Case discussed with collaborating physician Chiquis Michaels who reviewed the assessment and plan. Chart, medications, labs, vital signs reviewed. Dictation was accomplished with the use of [employer] voice recognition software, prone to medical misidentifications and grammatical errors. This is unintentional and the practitioner does try to identify and correct these, but some could still be present. Please do not hesitate to contact practitioner for clarification. 07/20/2025 Anxiety (ICD-10 - F41.9) Pleasant 40-year-old male who presents the office for a follow-up visit. # Scheduled with pulmonology, noted to have hypertension, scheduled for sleep apnea test in the next 10 weeks, but they are concerned in regards to his blood pressure that is been high at home. # Hypertension: Blood pressure 142/98. Patient is -Maldivian. Will start amlodipine 5 mg and follow-up in 4 weeks. Obtaining labs. Patient states that he occasionally does get headaches, declines dizziness. If symptoms persist post blood pressure management, could consider further imaging. Discussed EKG in office today July 20, 2025 but patient declines. He states he has no concern while driving # Asthma: Treated with albuterol by pulmonology as needed # BMI 32: Discussed lifestyle # Obtain labs from July 20, 2025, call with result # History of elevated triglycerides, very mild in the 160s, will repeat lipid panel # Family history of chronic kidney disease, monitor CMP #seasonal allergies Stop taking Claritin, but did discuss Flonase/nondrowsy allergy medication. # Refer to dermatology for routine skin checks/back acne treatment. Follow-up for complete physical in 4 weeks, will assess blood pressure at that time All quetsions answered to patients satisfaction. Patient verbalized understanding of diagnosis and treatments explained. To call sooner prior to next visit it any questions/concerns arise. Case discussed with collaborating physician Chiquis Michaels who reviewed the assessment and plan. Chart, medications, labs, vital signs reviewed. Dictation was accomplished with the use of [employer] voice recognition software, prone to medical misidentifications and grammatical errors. This is unintentional and the practitioner does try to identify and correct these, but some could still be present. Please do not hesitate to contact practitioner for clarification. 07/20/2025 Seasonal allergies (ICD-10 - J30.2) Pleasant 40-year-old male who presents the office for a follow-up visit. # Scheduled with pulmonology, noted to have hypertension, scheduled for sleep apnea test in the next 10 weeks, but they are concerned in regards to his blood pressure that is been high at home. # Hypertension: Blood pressure 142/98. Patient is -Maldiv[place]. Will start amlodipine 5 mg and follow-up in 4 weeks. Obtaining labs. Patient states that he occasionally does get headaches, declines dizziness. If symptoms persist post blood pressure management, could consider further imaging. Discussed EKG in office today July 20, 2025 but patient declines. He states he has no concern while driving # Asthma: Treated with albuterol by pulmonology as needed # BMI 32: Discussed lifestyle # Obtain labs from July 20, 2025, call with result # History of elevated triglycerides, very mild in the 160s, will repeat lipid panel # Family history of chronic kidney disease, monitor CMP #seasonal allergies Stop taking Claritin, but did discuss Flonase/nondrowsy allergy medication. # Refer to dermatology for routine skin checks/back acne treatment. Follow-up for complete physical in 4 weeks, will assess blood pressure at that time All quetsions answered to patients satisfaction. Patient verbalized understanding of diagnosis and treatments explained. To call sooner prior to next visit it any questions/concerns arise. Case discussed with collaborating physician Chiquis Michaels who reviewed the assessment and plan. Chart, medications, labs, vital signs reviewed. Dictation was accomplished with the use of [employer] voice recognition software, prone to medical misidentifications and grammatical errors. This is unintentional and the practitioner does try to identify and correct these, but some could still be present. Please do not hesitate to contact practitioner for clarification. 07/20/2025 Primary insomnia (ICD-10 - F51.01) Pleasant 40-year-old male who presents the office for a follow-up visit. # Scheduled with pulmonology, noted to have hypertension, scheduled for sleep apnea test in the next 10 weeks, but they are concerned in regards to his blood pressure that is been high at home. # Hypertension: Blood pressure 142/98. Patient is -Maldivian. Will start amlodipine 5 mg and follow-up in 4 weeks. Obtaining labs. Patient states that he occasionally does get headaches, declines dizziness. If symptoms persist post blood pressure management, could consider further imaging. Discussed EKG in office today July 20, 2025 but patient declines. He states he has no concern while driving # Asthma: Treated with albuterol by pulmonology as needed # BMI 32: Discussed lifestyle # Obtain labs from July 20, 2025, call with result # History of elevated triglycerides, very mild in the 160s, will repeat lipid panel # Family history of chronic kidney disease, monitor CMP #seasonal allergies Stop taking Claritin, but did discuss Flonase/nondrowsy allergy medication. # Refer to dermatology for routine skin checks/back acne treatment. Follow-up for complete physical in 4 weeks, will assess blood pressure at that time All quetsions answered to patients satisfaction. Patient verbalized understanding of diagnosis and treatments explained. To call sooner prior to next visit it any questions/concerns arise. Case discussed with collaborating physician Chiquis Michaels who reviewed the assessment and plan. Chart, medications, labs, vital signs reviewed. Dictation was accomplished with the use of [employer] voice recognition software, prone to medical misidentifications and grammatical errors. This is unintentional and the practitioner does try to identify and correct these, but some could still be present. Please do not hesitate to contact practitioner for clarification. 07/20/2025 Elevated lipids (ICD-10 - E78.5) Pleasant 40-year-old male who presents the office for a follow-up visit. # Scheduled with pulmonology, noted to have hypertension, scheduled for sleep apnea test in the next 10 weeks, but they are concerned in regards to his blood pressure that is been high at home. # Hypertension: Blood pressure 142/98. Patient is -Maldivian. Will start amlodipine 5 mg and follow-up in 4 weeks. Obtaining labs. Patient states that he occasionally does get headaches, declines dizziness. If symptoms persist post blood pressure management, could consider further imaging. Discussed EKG in office today July 20, 2025 but patient declines. He states he has no concern while driving # Asthma: Treated with albuterol by pulmonology as needed # BMI 32: Discussed lifestyle # Obtain labs from July 20, 2025, call with result # History of elevated triglycerides, very mild in the 160s, will repeat lipid panel # Family history of chronic kidney disease, monitor CMP #seasonal allergies Stop taking Claritin, but did discuss Flonase/nondrowsy allergy medication. # Refer to dermatology for routine skin checks/back acne treatment. Follow-up for complete physical in 4 weeks, will assess blood pressure at that time All quetsions answered to patients satisfaction. Patient verbalized understanding of diagnosis and treatments explained. To call sooner prior to next visit it any questions/concerns arise. Case discussed with collaborating physician Chiquis Michaels who reviewed the assessment and plan. Chart, medications, labs, vital signs reviewed. Dictation was accomplished with the use of [employer] voice recognition software, prone to medical misidentifications and grammatical errors. This is unintentional and the practitioner does try to identify and correct these, but some could still be present. Please do not hesitate to contact practitioner for clarification. 07/20/2025 Screen for STD (sexually transmitted disease) (ICD-10 - Z11.3) Pleasant 40-year-old male who presents the office for a follow-up visit. # Scheduled with pulmonology, noted to have hypertension, scheduled for sleep apnea test in the next 10 weeks, but they are concerned in regards to his blood pressure that is been high at home. # Hypertension: Blood pressure 142/98. Patient is -Maldivian. Will start amlodipine 5 mg and follow-up in 4 weeks. Obtaining labs. Patient states that he occasionally does get headaches, declines dizziness. If symptoms persist post blood pressure management, could consider further imaging. Discussed EKG in office today July 20, 2025 but patient declines. He states he has no concern while driving # Asthma: Treated with albuterol by pulmonology as needed # BMI 32: Discussed lifestyle # Obtain labs from July 20, 2025, call with result # History of elevated triglycerides, very mild in the 160s, will repeat lipid panel # Family history of chronic kidney disease, monitor CMP #seasonal allergies Stop taking Claritin, but did discuss Flonase/nondrowsy allergy medication. # Refer to dermatology for routine skin checks/back acne treatment. Follow-up for complete physical in 4 weeks, will assess blood pressure at that time All quetsions answered to patients satisfaction. Patient verbalized understanding of diagnosis and treatments explained. To call sooner prior to next visit it any questions/concerns arise. Case discussed with collaborating physician Chiquis Michaels who reviewed the assessment and plan. Chart, medications, labs, vital signs reviewed. Dictation was accomplished with the use of [employer] voice recognition software, prone to medical misidentifications and grammatical errors. This is unintentional and the practitioner does try to identify and correct these, but some could still be present. Please do not hesitate to contact practitioner for clarification. 07/20/2025 Encounter for examination of blood pressure with abnormal findings (ICD-10 - Z01.31) Pleasant 40-year-old male who presents the office for a follow-up visit. # Scheduled with pulmonology, noted to have hypertension, scheduled for sleep apnea test in the next 10 weeks, but they are concerned in regards to his blood pressure that is been high at home. # Hypertension: Blood pressure 142/98. Patient is -Maldivian. Will start amlodipine 5 mg and follow-up in 4 weeks. Obtaining labs. Patient states that he occasionally does get headaches, declines dizziness. If symptoms persist post blood pressure management, could consider further imaging. Discussed EKG in office today July 20, 2025 but patient declines. He states he has no concern while driving # Asthma: Treated with albuterol by pulmonology as needed # BMI 32: Discussed lifestyle # Obtain labs from July 20, 2025, call with result # History of elevated triglycerides, very mild in the 160s, will repeat lipid panel # Family history of chronic kidney disease, monitor CMP #seasonal allergies Stop taking Claritin, but did discuss Flonase/nondrowsy allergy medication. # Refer to dermatology for routine skin checks/back acne treatment. Follow-up for complete physical in 4 weeks, will assess blood pressure at that time All quetsions answered to patients satisfaction. Patient verbalized understanding of diagnosis and treatments explained. To call sooner prior to next visit it any questions/concerns arise. Case discussed with collaborating physician Chiquis Michaels who reviewed the assessment and plan. Chart, medications, labs, vital signs reviewed. Dictation was accomplished with the use of [employer] voice recognition software, prone to medical misidentifications and grammatical errors. This is unintentional and the practitioner does try to identify and correct these, but some could still be present. Please do not hesitate to contact practitioner for clarification. Plan Of Treatment Pending Test Test Name Order Date X ray : Spines, lumbosacral 12/12/2021 HSV 1 and 2-Specific Ab, IgG 07/20/2025 HIV 07/20/2025 HIV 01/29/2024 Ultrasound : Kidneys and Bladder 022 CBC (COMPLETE BLOOD COUNT) 03/03/2021 COMPREHENSIVE METABOLIC PANEL 03/03/2021 GC (N. GONORRHOEAE) AMP PROBE, URINE 11/2023 HEMOGLOBIN A1C 03/03/2021 LIPID PANEL 03/03/2021 SYPHILIS TESTING 07/20/2025 URINALYSIS, COMPLETE 03/03/2021 Hepatitis C Antibody 01/29/2024 Hepatitis Acute Panel 08/19/2024 HIV 1 HIV 2 Antibody Screen 08/19/2024 CHLAMYDIA DNA URINE 01/29/2024 LIPID PANEL, STANDARD 08/19/2024 LIPID PANEL, STANDARD 07/20/2025 HIV 1/2 ANTIGEN/ANTIBODY,FOURTH GENERATI ON W/RFL 02/01/2024 COMPREHENSIVE METABOLIC PANEL 07/20/2025 COMPREHENSIVE METABOLIC PANEL 08/19/2024 CBC (INCLUDES DIFF/PLT) 08/19/2024 CBC (INCLUDES DIFF/PLT) 07/20/2025 URINALYSIS, COMPLETE 07/20/2025 HEMOGLOBIN A1c 07/20/2025 TSH 07/20/2025 HSV 1/2 IGG,TYPE SPECIFIC AB 08/19/2024 HSV 1/2 IGG,TYPE SPECIFIC AB 02/01/2024 CHLAMYDIA/N. GONORRHOEAE RNA, TMA, UROGE NITAL 02/01/2024 CHLAMYDIA/N. GONORRHOEAE RNA, TMA, UROGE NITAL 08/19/2024 CHLAMYDIA/N. GONORRHOEAE RNA, TMA, UROGE NITAL 07/20/2025 HERPES 1 AND 2 ANTIBODIES, IGM Next Appt Details Provider Name:DIAZ CONN, 11/02/2025 01:00:00 PM, [address], [place], [address], Insurance Providers Payer Name Payer Address Payer Phone Subscriber Number Group Number Insured Name Patient Relationship to Insured Coverage Start Date Coverage End Date [employer] [id number] [id number] STANLEY SIMPSON Self - patient is the insured Medical (General) History Medical History History ICD Code Asthma J45.909 Seasonal allergies J30.2 Snoring R06.83 Acne scarring L73.0 Postprocedural hypertension I97.3 Surgical History Surgery Date(Month/Year) Appendectomy (2020) 2020 Right achilles tear 2021
== END 2025-10-06 15:47 | disposition home or self-care (01) ==
LOC: HO.RESP 15:46
PROVIDERS: Visit Provider Nurse Practitioner Family
DX: J45.909 Unspecified asthma, uncomplicated (principal); Z87.891 Personal history of nicotine dependence
CPT/HCPCS: 94060; 94640; 94727; 94729

== ENCOUNTER → 2025-10-06 15:52 | Outpatient (BNV) | payer OTHER, SELFPAY | PROVIDERS: Visit Provider Internal Medicine Pulmonary Disease | DX: J45.909 Unspecified asthma, uncomplicated (principal) | CPT/HCPCS: 94060; 94727; 94729 ==